=== PATIENT | male | born 1980 | race African-American/Black ===

== ENCOUNTER 2016-09-03 15:17 | Emergency (ER) | payer OTHER ==
[~2016-09-03] VITALS: Ht 182.9 cm; Wt 84.8 kg
[~2016-09-03 15:17] MED LIST: AMOXIL 875 MG875 MG PO; CYCLOBENZAPRINE5 M2 PO; IBU800 MG PO; MOTRIN800 MG PO; NAPROSYN500 M1 PO; PERCOCET 325 MG1 TA2 PO; TRAMADOL50 MG PO
--- NOTE | 2016-09-03 15:20 | ED GI/GU/ABDOMINAL COMPLAINT ---
History of Present Illness General Chief Complaint: Abdominal Pain/Flank Pain Stated Complaint: ABO PAIN Source: patient Exam Limitations: no limitations Vital Signs & Intake/Output Vital Signs & Intake/Output Vital Signs Date Time Temp Pulse Resp B/P B/P Pulse O2 O2 Flow FiO2 Mean Ox Delivery Rate 09/03 1819 97.3 72 20 129/70 100 Room Air 09/03 1522 97.0 72 18 117/70 99 Room Air ED Intake and Output 09/04 0000 09/03 1200 Intake Total 3000 Output Total 320 Balance 2680 Intake, IV 3000 Output, Urine 320 Patient 187 lb Weight Allergies Coded Allergies: Penicillins (HIVES, ITCHING 09/26/15) Reconcile Medications Ciprofloxacin HCl (Cipro) 500 MG TABLET 1 TAB PO BID UTI Diclofenac Epolamine (Flector) 1.3 % PATCH.TD12 1 PAT TOP BID PAIN (Reported) Divalproex Sodium (Divalproex Sodium ER) (Unknown Strength) TAB.ER.24H ( Unknown Dose) UNKNOWN (Reported) Ergocalciferol (Vitamin D2) (Vitamin D2) (Unknown Strength) CAPSULE (Unknown Dose) UNKNOWN (Reported) Naproxen 500 MG TABLET 1 TAB PO BID PRN PAIN (Reported) Nicotine Polacrilex (Nicotine Gum) (Unknown Strength) GUM (Unknown Dose) UNKNOWN (Reported) Quetiapine Fumarate (Unknown Strength) TABLET (Unknown Dose) UNKNOWN ( Reported) Quetiapine Fumarate (Seroquel XR) (Unknown Strength) TAB.ER.24H (Unknown Dose) UNKNOWN (Reported) Triage Nurses Notes Reviewed? yes Onset: Abrupt Duration: day(s): (1) Timing: multiple episodes today Quality/Severity: moderate, severe Location: left flank, left lower quadrant Radiation: no radiation Activities at Onset: none Prior Abdominal Problems: none No Modifying Factors: none Associated Symptoms: abdominal pain (HEMATURIA) HPI: This is a 35-year-old healthy male presents to the ER for chief complaint of left flank, left lower quadrant pain since yesterday. Today he went to an urgent care for evaluation and was found to have amarilis hematuria. Denies any trauma. Denies any previous history of kidney stone. He does complain of urinary frequency. No fever or chills. Denies any personal or family history of kidney stones. Patient states that he is not very compliant about staying well-hydrated. Denies any penile discharge or risk for STD's. Past History Medical History Any Pertinent Medical History? 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 No Review of Systems Review of Systems Constitutional: Denies: chills, fever. EENTM: Reports: no symptoms. Respiratory: Denies: cough, short of breath. Cardiovascular: Denies: chest pain, palpitations. GI: Denies: abdominal pain. Genitourinary: Reports: dysuria, hematuria. Musculoskeletal: Reports: back pain. Skin: Reports: no symptoms. Neurological/Psychological: Reports: no symptoms. Hematologic/Endocrine: Reports: bleeding, polyuria. Denies: bruising, polydipsia. Immunologic/Allergic: Denies: splenectomy. All Other Systems: Reviewed and Negative Physical Exam Physical Exam General Appearance: well developed/nourished, alert, anxious Head: atraumatic, normal appearance Eyes: Bilateral: normal appearance, PERRL, EOMI. Ears, Nose, Throat, Mouth: hearing grossly normal, moist mucous membrane Neck: normal inspection, supple, full range of motion Respiratory: normal breath sounds, chest non-tender, no respiratory distress Cardiovascular: regular rate/rhythm Peripheral Pulses: 2+ radial (R), 2+ radial (L) Gastrointestinal: normal bowel sounds, soft, tenderness (SUPRAPUBIC) Male Genitals: normal genitalia Extremities: normal range of motion Neurologic/Psych: no motor/sensory deficits, awake, alert, oriented x 3 Skin: intact, normal color, warm/dry Core Measures ACS in differential dx? No Severe Sepsis Present: No Septic Shock Present: No Progress Differential Diagnosis: ureterolithiasis, urinary retention, UTI/pyelo, BLADDER POLYP, Plan of Care: Orders Procedure Date/time Status Add-on Test (ER Only) 09/03 1629 Active CULTURE,URINE 09/03 1545 Active ETHANOL 09/03 1545 Complete URINALYSIS 09/03 1535 Complete PARTIAL THROMBOPLASTIN TIME 09/03 1535 Complete PROTHROMBIN TIME 09/03 1535 Complete COMPREHENSIVE METABOLIC PANEL 09/03 1535 Complete CBC WITHOUT DIFFERENTIAL 09/03 1535 Complete Laboratory Tests 09/03/16 1545: Anion Gap 8, Estimated GFR > 60, BUN/Creatinine Ratio 8.2, Glucose 83, Calcium 10.2, Total Bilirubin 1.2, AST 30, ALT 35, Alkaline Phosphatase 93, Total Protein 7.6, Albumin 4.6, Globulin 3.0, Albumin/Globulin Ratio 1.5, PT 12.3, INR 1.17, APTT 38 H, CBC w Diff NO MAN DIFF REQ, RBC 4.46 L, MCV 101.3 H, MCH 33.1 H, RDW 13.2, MPV 9.2, Gran % 67.8, Lymphocytes % 15.0 L, Monocytes % 9.8 H, Eosinophils % 6.6 H, Basophils % 0.8, Absolute Granulocytes 8.0 H, Absolute Lymphocytes 1.8, Absolute Monocytes 1.2 H, Absolute Eosinophils 0.8, Absolute Basophils 0.1, PUBS MCHC 32.7 L, Serum Alcohol < 10.0, Urine Color BLDY H, Urine Clarity TURBD H, Urine pH 6.5, Ur Specific [place] 1.020, Urine Protein > =300 H, Urine Ketones 15 H, Urine Nitrite POS H, Urine Bilirubin NEG@ICTO, Urine Urobilinogen >=8.0 H, Ur Leukocyte Esterase LARGE H, Ur Microscopic SEDIMENT EXAMINED, Urine RBC PACKD H, Urine WBC 10-15 H, Ur Epithelial Cells RARE, Urine Bacteria FEW H, Urine Hemoglobin LARGE H, Urine Glucose 100 H 09/03/16 1537: Serum Alcohol Cancelled Microbiology 09/03 154 URINE ROUT: Urine Culture - RECD Diagnostic Imaging: Viewed by Me: CT Scan. Discussed w/RAD: CT Scan. Radiology Impression: PATIENT: VERENA MCKNIGHT PRESENT AGE: 35 PATIENT ACCOUNT NO: [id number] : 82 LOCATION: [facility] ORDERING PHYSICIAN: JOSE CARLOS CHOW MD SERVICE DATE: 09/03/16-1534 EXAM TYPE: CAT - CT ABD & PELVIS W/O IV CONTRAS EXAMINATION: CT ABDOMEN AND PELVIS WITHOUT CONTRAST CLINICAL INFORMATION: Left flank pain, hematuria COMPARISON: None TECHNIQUE: Multidetector volumetric imaging was performed from the superior aspect of the liver through the pubic symphysis. Sagittal and coronal reformatted images were obtained on the technologist's workstation. DLP: 307 mGy-cm FINDINGS: LUNG BASES : The visualized lung bases are unremarkable. LIVER, GALLBLADDER, AND BILIARY TREE: The liver is normal in size, shape, and attenuation. No focal hepatic lesion or biliary ductal dilatation is present. The gallbladder is unremarkable with no evidence of radiopaque gallstones, gallbladder wall thickening, or obvious pericholecystic inflammatory changes. PANCREAS: Unremarkable. SPLEEN: Unremarkable. ADRENAL GLANDS: Unremarkable. KIDNEYS AND URETERS: The kidneys are normal in size, shape, and attenuation. No hydronephrosis, hydroureter, or calculi seen. No perinephric stranding. BLADDER: Unremarkable. GASTROINTESTINAL TRACT: The small and large bowel are unremarkable. The appendix is unremarkable. ABDOMINAL WALL: No significant hernia is appreciated. LYMPH NODES: Normal. VASCULAR: Unremarkable. PELVIC VISCERA: Unremarkable. OSSEOUS STRUCTURES: Unremarkable. IMPRESSION: 1. Limited noncontrast study. 2. No CT explanation of the left flank pain. DICTATED BY: GLADYS AGRAWAL MD DATE/TIME DICTATED:09/03/161615 WINTER SPORTS MANAGER:DEYANIRA DATE/TIME TRANSCRIBED:09/03/161615 CONFIDENTIAL, DO NOT COPY WITHOUT APPROPRIATE AUTHORIZATION. <Electronically signed in Other Vendor System> SIGNED BY: GLADYS AGRAWAL MD 09/03/16 1622 Initial ED EKG: none Departure Departure Time of Disposition: 1737 Disposition: HOME OR SELF CARE Condition: Stable Clinical Impression Primary Impression: UTI (urinary tract infection) Secondary Impressions: Hematuria Referrals: PATIENT HAS NO PRIMARY CARE DR Additional Instructions: TAKE THE CIPRO DIRECTED. DRINK PLENTY OF WATER DIRECTED AND FOLLOW UP WITH THE UROLOGIST LISTED. RETURN TO THE ER FOR ANY CHANGING OR WORSENING SYMPTOMS. Departure Forms: Customer Survey General Discharge Information Prescriptions: Current Visit Scripts Ciprofloxacin HCl (Cipro) 1 TAB PO BID #19 TAB
[2016-09-03 16:09] LABS: ABSOLUTE BASOPHIL COUNT 0.1 /CUMM (0.0-0.2); ABSOLUTE EOSINOPHIL COUNT 0.8 /CUMM (0.0-0.7); ABSOLUTE LYMPH COUNT 1.8 /CUMM (1.2-3.4); ABSOLUTE MONOCYTE COUNT 1.2 /CUMM (0.10-0.60); BASOPHIL % 0.8 % (0.0-2.0); EOSINOPHIL % 6.6 % (0-5); GRANULOCYTE % 67.8 % (42.2-75.2); HEMATOCRIT 45.2 % (42-52); MEAN CORPUSCULAR HGB 33.1 PG (27.0-31.0); MEAN CORPUSCULAR HGB CONC 32.7 G/DL (33.0-37.0); MEAN CORPUSCULAR VOLUME 101.3 FL (80.0-94.0); MEAN PLATELET VOLUME 9.2 FL (7.4-10.4); PLATELET COUNT 264 /CUMM (130-400); RBC DISTRIBUTION WIDTH 13.2 % (11.5-14.5); RED BLOOD CELL CT 4.46 /CUMM (4.70-6.10); WHITE BLOOD CELL COUNT 11.8 /CUMM (4.8-10.8)
[2016-09-03 16:22] LABS: PT 12.3 SEC (9.4-12.5); PTT 38 SEC (25-37)
--- NOTE | 2016-09-03 16:22 | CT SCAN REPORT ---
EXAMINATION: CT ABDOMEN AND PELVIS WITHOUT CONTRAST CLINICAL INFORMATION: Left flank pain, hematuria COMPARISON: None TECHNIQUE: Multidetector volumetric imaging was performed from the superior aspect of the liver through the pubic symphysis. Sagittal and coronal reformatted images were obtained on the technologist's workstation. DLP: 307 mGy-cm FINDINGS: LUNG BASES: The visualized lung bases are unremarkable. LIVER, GALLBLADDER, AND BILIARY TREE: The liver is normal in size, shape, and attenuation. No focal hepatic lesion or biliary ductal dilatation is present. The gallbladder is unremarkable with no evidence of radiopaque gallstones, gallbladder wall thickening, or obvious pericholecystic inflammatory changes. PANCREAS: Unremarkable. SPLEEN: Unremarkable. ADRENAL GLANDS: Unremarkable. KIDNEYS AND URETERS: The kidneys are normal in size, shape, and attenuation. No hydronephrosis, hydroureter, or calculi seen. No perinephric stranding. BLADDER: Unremarkable. GASTROINTESTINAL TRACT: The small and large bowel are unremarkable. The appendix is unremarkable. ABDOMINAL WALL: No significant hernia is appreciated. LYMPH NODES: Normal. VASCULAR: Unremarkable. PELVIC VISCERA: Unremarkable. OSSEOUS STRUCTURES: Unremarkable. IMPRESSION: 1. Limited noncontrast study. 2. No CT explanation of the left flank pain.
[2016-09-03] MEDS ORDERED: VITAMIN D250000 UNIT (16:44)
[2016-09-03] MEDS ORDERED: FLECTOR1 EACH TOP (16:44)
[2016-09-03] MEDS ORDERED: QUETIAPINE FUMA50 M1 (16:45)
[2016-09-03] MEDS ORDERED: NAPROXEN500 M2 PO (16:45)
[2016-09-03] MEDS ORDERED: NICOTINE GUM2 MG (16:46)
[2016-09-03] MEDS ORDERED: SEROQUEL XR150 M1 (16:46)
[2016-09-03] MEDS ORDERED: DIVALPROEX SOD500 M3 (16:46)
[2016-09-03 18:19] VITALS: BP 129/70
[2016-09-03] MEDS ORDERED: CIPRO500 M1 PO (18:23)
== END 2016-09-03 18:34 ==
LOC: ERH 15:17
PROVIDERS: Emergency Medicine
DX: N39.0 Urinary tract infection, site not specified (principal); R31.9 Hematuria, unspecified
CPT/HCPCS: 74176; 81001; 87086; 96374; G0480; J1885

== ENCOUNTER 2017-05-02 09:19 | Emergency (ER) | payer OTHER ==
[~2017-05-02] VITALS: Ht 182.9 cm; Wt 86.2 kg
[~2017-05-02 09:19] MED LIST changes: +CIPRO500 M1 PO; +DIVALPROEX SOD500 M3; +FLECTOR1 EACH TOP; +NAPROXEN500 M2 PO; +NICOTINE GUM2 MG; +QUETIAPINE FUMA50 M1; +SEROQUEL XR150 M1; +VITAMIN D250000 UNIT
[2017-05-02] MEDS ORDERED: QUETIAPINE FUM300 M1 PO (10:50)
[2017-05-02] MEDS ORDERED: QUETIAPINE FUMA50 M1 PO (10:50)
--- NOTE | 2017-05-02 10:50 | ED DYSPNEA/ASTHMA COMPLAINT ---
History of Present Illness General Chief Complaint: Wheezing/Asthma Stated Complaint: ASTHMA Source: patient Exam Limitations: no limitations Vital Signs & Intake/Output Vital Signs & Intake/Output Vital Signs Date Time Temp Pulse Resp B/P B/P Pulse O2 O2 Flow FiO2 Mean Ox Delivery Rate 05/02 1100 94 05/02 0925 97.4 90 18 123/88 96 Room Air Room Air Allergies Coded Allergies: Penicillins (HIVES, ITCHING 09/26/15) Reconcile Medications Quetiapine Fumarate 300 MG TABLET 1 TAB PO QPM MENTAL HEALTH (Reported) Quetiapine Fumarate 50 MG TABLET 1 TAB PO TID MENTAL HEALTH (Reported) Triage Note: PT TO ED WITH C/O SINUS CONGESTION, FEELING TIRED, "MY 9 MONTH OLD DAUGHTER IS SICK AND SHE GAVE IT TO ME". Triage Nurses Notes Reviewed? yes Onset: Gradual Duration: hour(s):, constant, continues in ED, getting worse Severity: moderate, severe Activities at Onset: none HPI: Patient presents for evaluation of an asthma exacerbation triggered by a chest cold. Patient states that he began feeling ill gradually last night with a cough and mild phlegm production. He has been wheezing despite the use of an albuterol and steroid inhaler. He does admit to cigarette smoking but denies any drug use. Past History Travel History Traveled to [place] past 21 day No Medical History Any Pertinent Medical History? 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 No Review of Systems Review of Systems Constitutional: Reports: no symptoms. EENTM: Reports: no symptoms. Respiratory: Reports: see HPI. Cardiovascular: Reports: no symptoms. GI: Reports: no symptoms. Genitourinary: Reports: no symptoms. Musculoskeletal: Reports: no symptoms. Skin: Reports: no symptoms. Neurological/Psychological: Reports: no symptoms. Hematologic/Endocrine: Reports: no symptoms. Immunologic/Allergic: Reports: no symptoms. All Other Systems: Reviewed and Negative Physical Exam Physical Exam Respiratory: SEE BELOW Comments: Gen.: Well-nourished, well-developed, mild respiratory distress. Head: Normocephalic, atraumatic. Eyes: Normal inspection bilaterally Ears: Normal inspection bilaterally Nose: Normal inspection Throat/mouth : Moist mucosa Neck: Supple, full range of motion, no goiter Heart: Regular rate and rhythm, no murmurs rubs or gallops Lungs: Scattered wheezes and bronchospastic cough with fair air entry bilaterally Chest: Nontender Back: Normal range of motion Abdomen: Soft, nontender, nondistended, normal bowel sounds Extremities: Normal range of motion grossly, equal radial pulses, no cyanosis clubbing or edema Neurologic: Cranial nerves grossly intact, speech is clear Skin: warm and dry Psychiatric: Calm, cooperative, no apparent delusions or hallucinations Core Measures ACS in differential dx? No CVA/TIA Diagnosis No Sepsis Present: No Sepsis Focused Exam Completed? No Progress Differential Diagnosis: asthma, bronchitis, pneumonia, VIRAL SYNDROME Plan of Care: Current Medications Sig/Su Start time Last Medication Dose Stop Time Status Admin Albuterol Sulfate 3 ML ONCE ONE 05/02 1100 UNVr (Proventil) 05/02 1101 Ipratropium [place] 2.5 ML ONCE ONE 05/02 1100 UNVr (Atrovent) 05/02 1101 Prednisone 60 MG ONCE ONE 05/02 1100 UNVr 05/02 1101 Initial ED EKG: none Comments: 05/02/2017 11:18:01 AM VERENA is feeling better and he states his wheezes have resolved. He is breathing comfortably and is conversant. Departure Departure Disposition: HOME OR SELF CARE Condition: Stable Clinical Impression Primary Impression: Asthma exacerbation Qualifiers: Asthma severity: moderate Asthma persistence: unspecified Qualified Code: J45.901 - Unspecified asthma with (acute) exacerbation Secondary Impressions: Viral bronchitis Referrals: Unknown (PCP/Family) Additional Instructions: Continue the albuterol inhaler every 4-6 hours as needed. You should discontinue the steroid inhaler while taking the prednisone as prescribed. Try to quit smoking. Follow-up with your primary care physician this week for reevaluation. Return if any concerns or sudden worsening. Thank you for choosing the [facility] Emergency Department for your care. It was a pleasure to serve you today. Clive Piper M.D. [facility] Departure Forms: Customer Survey General Discharge Information Prescriptions: Current Visit Scripts Prednisone (Deltasone) 3 TAB PO DAILY #12 TAB BEGIN TOMORROW Critical Care Note Critical Care Note Critical Care Time: non-applicable
[2017-05-02] MEDS ORDERED: DELTASONE20 MG PO (11:20)
[2017-05-02] MEDS ORDERED: PROAIR HFA8.5 GM INH (12:23)
[2017-05-02 12:28] VITALS: BP 137/82
== END 2017-05-02 12:29 ==
LOC: ERH 09:19
DX: J45.901 Unspecified asthma with (acute) exacerbation (principal); F17.210 Nicotine dependence, cigarettes, uncomplicated
CPT/HCPCS: 1263

== ENCOUNTER 2017-05-30 12:14 | Emergency (ER) | payer OTHER ==
[~2017-05-30] VITALS: Ht 182.9 cm; Wt 83.9 kg
[~2017-05-30 12:14] MED LIST changes: +DELTASONE20 MG PO; +PROAIR HFA8.5 GM INH; +QUETIAPINE FUM300 M1 PO; +QUETIAPINE FUMA50 M1 PO
[2017-05-30 12:18] VITALS: BP 123/83
--- NOTE | 2017-05-30 12:34 | ED DYSPNEA/ASTHMA COMPLAINT ---
History of Present Illness General Chief Complaint: Dyspnea (COPD, CHF, Other) Stated Complaint: SIB URGENT CARE S/P 3 BREATHING TX ?MUCUS BLOCK? Source: patient Exam Limitations: no limitations Vital Signs & Intake/Output Vital Signs & Intake/Output Vital Signs Date Time Temp Pulse Resp B/P B/P Pulse O2 O2 Flow FiO2 Mean Ox Delivery Rate 05/30 1218 97.0 111 20 123/83 96 Room Air Allergies Coded Allergies: Penicillins (HIVES, ITCHING 09/26/15) Reconcile Medications Albuterol Sulfate (Proair Hfa) 90 MCG HFA.AER.AD 2 INH INH Q6P PRN ASTHMA Albuterol Sulfate (Proair Hfa) 90 MCG HFA.AER.AD 2 INH INH Q6P PRN ASTHMA Fluticasone Propionate (Flovent Hfa) 44 MCG AER.W.ADAP 2 PUF INH BID asthma Prednisone (Deltasone) 20 MG TABLET 3 TAB PO DAILY WHEEZING BEGIN TOMORROW Prednisone (Deltasone) 20 MG TABLET 3 TAB PO DAILY WHEEZING Quetiapine Fumarate 300 MG TABLET 1 TAB PO QPM MENTAL HEALTH (Reported) Quetiapine Fumarate 50 MG TABLET 1 TAB PO TID MENTAL HEALTH (Reported) Triage Note: PT SENT TO ED FROM URGENT CARE FOR ASTHMA EXACERBATION. PT HAS H/O ASTHMA. WENT TO URGENT CARE FOR FEELING SOB. PT RECEIVED 3 DUONEBS AT URGENT CARE WITH NO RELIEF, AND WAS TOLD TO COME TO ED FOR "MUCOUS BLOCKAGE". PT DOES NOT HAVE INHALERS OR NEBS AT HOME. RA SATS 96%. NO OBVIOUS RESP DISTRESS NOTED. Triage Nurses Notes Reviewed? yes HPI: Patient presents for evaluation of worsening shortness of breath over the past 4 -5 days, after gradual onset. Patient has a history of asthma and went to a walk-in clinic today for evaluation and treatment. He was given 3 nebulizer treatments and then referred to the emergency department for evaluation of a possible mucous plug. Patient refers a nonproductive cough. Patient denies any associated fever or cold symptoms currently but states he may have had a mild viral illness recently. He is complaining of diffuse chest heaviness typical with his asthma exacerbations. He denies any associated leg swelling recent travel or seasonal allergy symptoms. He does admit however to smoking cigarettes. Past History Travel History Traveled to [place] past 21 day No Medical History Any Pertinent Medical History? 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 No Review of Systems Review of Systems Constitutional: Reports: no symptoms. EENTM: Reports: no symptoms. Respiratory: Reports: see HPI. Cardiovascular: Reports: no symptoms. GI: Reports: no symptoms. Genitourinary: Reports: no symptoms. Musculoskeletal: Reports: no symptoms. Skin: Reports: no symptoms. Neurological/Psychological: Reports: no symptoms. Hematologic/Endocrine: Reports: no symptoms. Immunologic/Allergic: Reports: no symptoms. All Other Systems: Reviewed and Negative Physical Exam Physical Exam Respiratory: see below Comments: gen: wn, wd, no acute resp distress head: nc/at eyes: normal inspection ears: normal inspection nose: normal inspection throat/mouth: moist mucosa neck: supple, from, no goiter heart: rrr, no mrg lungs: mild bilateral end exp wheezing with normal air entry chest: nt abd: soft, nd, normal bowel sounds, nontender back: normal range of motion ext: normal range of motion, no cyanosis, clubbing or edema skin: warm and dry circulatory: normal radial pulses neuro: cn 2-12 grossly intact, speech clear psych: calm, cooperative, no apparent delusion, hallucinations or pressured speech Core Measures ACS in differential dx? No CVA/TIA Diagnosis No Sepsis Present: No Sepsis Focused Exam Completed? No Progress Differential Diagnosis: asthma, bronchitis, CHF, COPD Plan of Care: see d/c instructions Initial ED EKG: none Departure Departure Disposition: HOME OR SELF CARE Condition: Stable Clinical Impression Primary Impression: Asthma exacerbation Qualifiers: Asthma severity: moderate Asthma persistence: unspecified Qualified Code: J45.901 - Unspecified asthma with (acute) exacerbation Referrals: Unknown (PCP/Family) Additional Instructions: Prednisone as prescribed. When the prednisone is finished began using Flovent daily. Use the albuterol inhaler if needed for any asthma exacerbations. Try to quit smoking. Follow-up with your primary care physician as scheduled. Return if any concerns or sudden worsening. Thank you for choosing the [facility] Emergency Department for your care. It was a pleasure to serve you today. Clive Piper M.D. [facility] Departure Forms: Customer Survey General Discharge Information Prescriptions: Current Visit Scripts Prednisone (Deltasone) 3 TAB PO DAILY #15 TAB Fluticasone Propionate (Flovent Hfa) 2 PUF INH BID #10.6 GM Albuterol Sulfate (Proair Hfa) 2 INH INH Q6P PRN ASTHMA #1 INHAL Critical Care Note Critical Care Note Critical Care Time: non-applicable
[2017-05-30] MEDS ORDERED: PROAIR HFA8.5 GM INH (12:38)
[2017-05-30] MEDS ORDERED: FLOVENT HFA10.6 GM INH (12:38)
[2017-05-30] MEDS ORDERED: DELTASONE20 MG PO (12:38)
== END 2017-05-30 12:53 ==
LOC: ERH 12:14
DX: J45.901 Unspecified asthma with (acute) exacerbation (principal); F17.210 Nicotine dependence, cigarettes, uncomplicated